=== PATIENT | male | born 1975 | race Caucasian/White ===

== ENCOUNTER 2021-03-03 20:37 | Emergency (ER) | payer SELFPAY ==
--- NOTE | ~2021-03-03 | XR_ITS ---
EXAMINATION: XR chest 1V portable 03/03/2021 22:18 INDICATION: Anxious. Elevated blood pressure. PROCEDURE: 2 view chest COMPARISON: No prior studies for comparison. FINDINGS: The lungs are clear. The cardiomediastinal silhouette is within normal limits. There are no pleural effusions. There is no pneumothorax suspected. IMPRESSION: 1: NO ACUTE CARDIOPULMONARY DISEASE. Reviewed, dictated and finalized at location A.
[2021-03-03 21:00] VITALS: BP 141/94; PULSE 85; RESP 18; TEMP 36.2; O2SAT 98
[2021-03-03 22:08] VITALS: BP 152/98; PULSE 77; RESP 20; O2SAT 99
[2021-03-03 22:09] VITALS: BP 152/98; PULSE 77; RESP 20; TEMP 36.7; O2SAT 99
--- NOTE | 2021-03-03 22:09 | ECG_ITS ---
Measurements Intervals [place] Rate: 89 P: 64 ID: [id number] QRS: -32 QRSD: 122 T: 0 QT: 375 QTc: 456 Interpretive Statements SINUS RHYTHM LEFT AXIS DEVIATION RIGHT BUNDLE BRANCH BLOCK BASELINE WANDER- AVL, AVF ABNORMAL ECG Electronically Signed On 03-04-2021 7:15:18 CDT by Rishabh Driver D.O.
--- NOTE | 2021-03-03 22:22 | ED.GENADULT ---
HPI - General Adult General Chief complaint: Anxiety <IVORY Benz Last Filed: 03/03/21 23:10> Stated complaint: Anxiety <IVORY Benz Last Filed: 03/03/21 23:10> Time Seen by Provider: 03/03/21 21:59 <IVORY Benz Last Filed: 03/03/21 23:10> Source: patient and family <IVORY Benz Last Filed: 03/03/21 23:10> Mode of arrival: ambulatory <IVORY Benz Last Filed: 03/03/21 23:10> Limitations: no limitations <IVORY Benz Last Filed: 03/03/21 23:10> History of Present Illness HPI narrative: Patient is a 46-year-old male who presents to emergency department for evaluation of feeling anxious jittery and nervous while driving today after talking to his son patient was nervous that he felt different than his normal anxiety patient on arrival to emergency department notes that his symptoms have resolved. Patient is currently traveling across country on a trip with his partner. Patient denies recent illness or other complaints or history of cardiopulmonary disease <Melchor Scott PA-C - Last Filed: 03/03/21 23:10> Related Data Allergies/adverse reactions: Allergies Allergy/AdvReac Type Severity Reaction Status Date / Time No Known Allergies Allergy Verified 03/03/21 22:12 <IVORY Benz Last Filed: 03/03/21 23:10> Review of Systems Review of Systems: All systems reviewed & are unremarkable except as noted in HPI and below <IVORY Benz Last Filed: 03/03/21 23:10> PMFSH Past Medical History Medical History: Medical History (Updated 03/04/21 @ 00:00 by Jyoti Gaines) Anxiety <IVORY Benz Last Filed: 03/03/21 23:10> Exam Narrative: Exam Narrative: GENERAL: Well-appearing, well-nourished, and in no acute distress. HEAD: Normocephalic, atraumatic. EYES: PERRLA and EOMI. ENT: Nares clear, no rhinorrhea or epistaxis. Mucous membranes moist. CHEST: Clear to auscultation. No respiratory distress. No wheezes rales or rhonchi HEART: Regular rate and rhythm. No murmur heard. Normal peripheral pulses. ABDOMEN: Soft, nontender, distended EXTREMITIES: Normal range of motion. No edema. SKIN: Warm, dry, no rash. NEURO: No focal deficits. Alert and oriented x3. PSYCH: Normal mood and affect. <Melchor Scott PA-C - Last Filed: 03/03/21 23:10> Course Course Emergency Course: Patient in the room no distress symptoms most consistent with anxiety no chest pain will be discharged felt appropriate for continued evaluation on outpatient basis patient agrees with this plan ABCs and vital signs intact and stable <Melchor Scott PA-C - Last Filed: 03/03/21 23:10> Vital Signs Vital signs: Vital Signs Temperature 97.1 F L 03/03/21 21:00 Pulse Rate 85 03/03/21 21:00 Respiratory Rate 18 03/03/21 21:00 Blood Pressure 141/94 H 03/03/21 21:00 Pulse Oximetry 98 03/03/21 21:00 Temperature 98.0 F 03/03/21 22:09 Pulse Rate 78 03/03/21 23:16 Respiratory Rate 20 03/03/21 23:16 Blood Pressure 142/68 H 03/03/21 23:16 Pulse Oximetry 99 03/03/21 23:16 <Melchor Scott PA-C - Last Filed: 03/03/21 23:10> Vital Signs Temperature 97.1 F L 03/03/21 21:00 Pulse Rate 85 03/03/21 21:00 Respiratory Rate 18 03/03/21 21:00 Blood Pressure 141/94 H 03/03/21 21:00 Pulse Oximetry 98 03/03/21 21:00 Temperature 98.0 F 03/03/21 22:09 Pulse Rate 78 03/03/21 23:16 Respiratory Rate 20 03/03/21 23:16 Blood Pressure 142/68 H 03/03/21 23:16 Pulse Oximetry 99 03/03/21 23:16 <Jessica Wright MD - Last Filed: 03/04/21 05:11> Medical Decision Making MDM Narrative Medical decision making narrative: Patients EKGs and labs are without significant high risk changes. Cardiac risk factors were reviewed. Patient is felt likely to be low risk for ACS and reasonable for further risk stratification testing
[2021-03-03 22:32] LABS: Basophils Absolute Auto 0.1 K/mm3 (0.0-0.1); Basophils Percent Auto 0.6 % (0.2-1.2); Eosinophils Absolute Auto 0.1 K/mm3 (0-0.3); Eosinophils Percent Auto 1.2 % (0-4.4); Hematocrit 51.8 % (42.0-52.0); Hemoglobin 17.4 g/dL (14.0-18.0); Immature Granulocyte Absolute 0.06 K/mm3 (0.00-0.031); Immature Granulocyte Percent A 0.6 % (0-0.5); Lymphocytes Absolute Auto 2.01 K/mm3 (0.9-3.2); Lymphocytes Percent Auto 20.9 % (18.3-44.2); Mean Corpuscular HGB Conc 33.6 g/dl (32-36); Mean Corpuscular Hemoglobin 28.9 pg (26-34); Mean Corpuscular Volume 85.9 fl (80-100); Mean Platelet Volume 8.7 fl (7.4-10.4); Monocytes Absolute Auto 0.8 K/mm3 (0.1-0.6); Neutrophils Absolute Auto 6.6 K/mm3 (1.3-6.7); Neutrophils Percent Auto 68.7 % (45.5-73.1); Platelet Count Result 281 k/mm3 (150-375); Red Blood Count 6.03 M/mm3 (4.6-6.20); Red Cell Distribution Width 13.2 % (11.5-14.5); White Blood Count 9.6 K/mm3 (4.5-10.0)
[2021-03-03 22:43] LABS: Partial Thromboplastin Time 27.5 SECONDS (22.3-36.8); Prothrombin Time 13.4 Seconds (11.1-14.7)
[2021-03-03 22:44] LABS: Alanine Aminotransferase 35 U/L (4-50); Albumin Level 4.5 g/dL (3.5-5.1); Alkaline Phosphatase 54 U/L (38-126); Anion Gap 7 mmol/L (8-16); Aspartate Amino Transferase 27 U/L (17-59); Bilirubin,Total 0.6 mg/dL (0.2-1.3); Blood Urea Nitrogen 16 mg/dL (9-20); Calcium 9.3 mg/dL (8.4-10.2); Carbon Dioxide 27 mmol/L (22-30); Chloride 106 mmol/L (98-107); Estimated CRCL calculation 113 ml/min; Estimated Glomerular Filt Rate > 60; Glucose 147 mg/dL (75-110); Potassium 4.3 mmol/L (3.4-5.0); Sodium 140 mmol/L (137-145)
[2021-03-03 22:55] LABS: Troponin I < 0.012 ng/mL (0.000-0.034)
[2021-03-03 23:16] VITALS: BP 142/68; PULSE 78; RESP 20; O2SAT 99
== END 2021-03-03 23:17 | disposition home or self-care (01) ==
PROVIDERS: Emergency Medicine Emergency Medical Services; Emergency Provider General Practice
DX: F41.9 Anxiety disorder, unspecified (principal)
CPT/HCPCS: 36415; 71045; 80053; 84484; 85025; 85610; 85730; 93005; 99284